=== PATIENT | male | born 1960 | race African-American/Black ===

== ENCOUNTER 2017-05-09 08:57 | Emergency (ER) | payer MEDICAID ==
[~2017-05-09] VITALS: Ht 180.3 cm; Wt 113.0 kg
[2017-05-09 09:19] VITALS: Ht 180.3 cm; Wt 113.0 kg
[2017-05-09] MEDS ORDERED: HYDROCODONE/APAP (5/325) TAB PO ONE (09:30)
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
[2017-05-09] MEDS ORDERED: IBUP800T25 PO (10:05)
[2017-05-09] MEDS ORDERED: HYDR-906 PO (10:05)
[2017-05-09 10:18] VITALS: BP 174/89; PULSE 89; RESP 20
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
== END 2017-05-09 10:18 | disposition home or self-care (01) ==
LOC: E/R 08:57
DX: S70.02XA Contusion of left hip, initial encounter (principal); V09.20XA Pedestrian injured in traffic accident involving unspecified motor vehicles, initial encounter
CPT/HCPCS: 73510; Z7502; Z7610

== ENCOUNTER 2017-08-31 08:58 | Emergency (ER) | END 2017-08-31 17:18 | disposition home or self-care (01) ==

== ENCOUNTER 2018-01-09 11:24 | Inpatient (IN) | END 2018-01-10 14:15 | disposition home or self-care (01) | DRG 313 ==

== ENCOUNTER 2018-05-28 12:46 | Observation (INO) | END 2018-05-29 12:28 | disposition home or self-care (01) ==

== ENCOUNTER 2018-07-30 09:49 | Observation (INO) | payer OTHER ==
[~2018-07-30] VITALS: Ht 180.3 cm; Wt 129.0 kg
[~2018-07-30 09:49] MED LIST: ALBU8.5H8 INH
[2018-07-30 09:59] VITALS: Ht 180.3 cm; Wt 129.0 kg
[2018-07-30] MEDS ORDERED: ASPIRIN 325 MG TAB PO STA (10:36)
[2018-07-30] MEDS ORDERED: ACETAMINOPHEN 325 MG TAB PO PRN ×2 (12:00→14:00)
[2018-07-30] MEDS ORDERED: ONDANSETRON 4 MG INJ IV PRN ×2 (12:00→14:00)
--- NOTE | 2018-07-30 12:11 | ERD ---
ER Documentation Chief Complaint Chief Complaint FEVER, SORE THROAT, COUGH, CWP, STOMACHACHE HPI 58-year-old gentleman, smoking history who presents to the emergency with multiple complaints. His main complaint is chest pressure for approximately 3-5 days. He describes exertional left-sided chest pressure with associated nausea and diaphoresis. He also notes concomitant mild sore throat, dry nonproductive cough. ROS All systems reviewed and are negative except as per history of present illness. Medications Home Meds Active Scripts Albuterol Sulfate* (Proair HFA*) 8.5 Gm Hfa.aer.ad, 2 PUFF INH Q4H PRN for WHEEZING AND SOB for 30 Days, #1 INHALER 6 Refills Prov:REANNA BROOKE MD 05/29/18 Allergies Allergies: Coded Allergies: iodine (Verified Allergy, Intermediate, 01/08/18) PMhx/Soc Anesthesia Reaction: No Hx Neurological Disorder: Yes (left hand tingling) Hx Respiratory Disorders: No Hx Cardiac Disorders: No Hx Psychiatric Problems: No Hx Miscellaneous Medical Probl: No Hx Alcohol Use: Yes (HEAVY USE) Hx Substance Use: No Hx Tobacco Use: Yes Smoking Status: Current every day smoker Physical Exam Vitals Vital Signs Date Temp Pulse Resp B/P (MAP) Pulse Ox O2 O2 Flow FiO2 Time Delivery Rate 07/30/18 63 17 152/65 96 Room Air 11:57 (94) 07/30/18 77 20 128/99 96 Room Air 11:01 (109) 07/30/18 98.4 94 20 124/64 96 09:59 (84) Physical Exam General: Well developed, well nourished, no acute distress Head: Normocephalic, atraumatic. Eyes: Pupils equally reactive, EOM intact ENT: Moist mucous membranes, posterior pharynx without swelling or exudates Neck: Supple, no lymphadenopathy Respiratory: Lungs clear bilaterally, no distress Cardiovascular: RRR, no murmurs, rubs, or gallops Abdominal: Soft, non-tender, non-distended, no peritoneal signs : Deferred MSK: No edema, no unilateral swelling, 5/5 strength Neurologic: Alert and oriented, moving all extremities, normal speech, no focal weakness, no cerebellar signs Skin: No rash Psych: Normal mood Result Diagram: 07/30/18 1049 07/30/18 1049 Results 24 hrs Laboratory Tests Test 07/30/18 10:49 White Blood Count 5.6 10^3/ul Red Blood Count 4.44 10^6/ul Hemoglobin 14.7 g/dl Hematocrit 43.2 % Mean Corpuscular Volume 97.3 fl Mean Corpuscular Hemoglobin 33.1 pg Mean Corpuscular Hemoglobin Concent 34.0 g/dl Red Cell Distribution Width 13.2 % Platelet Count 243 10^3/UL Mean Platelet Volume 8.9 fl Immature Granulocytes % 0.400 % Neutrophils % 61.1 % Lymphocytes % 23.0 % Monocytes % 7.6 % Eosinophils % 7.0 % Basophils % 0.9 % Nucleated Red Blood Cells % 0.0 /100WBC Immature Granulocytes # 0.020 10^3/ul Neutrophils # 3.4 10^3/ul Lymphocytes # 1.3 10^3/ul Monocytes # 0.4 10^3/ul Eosinophils # 0.4 10^3/ul Basophils # 0.1 10^3/ul Nucleated Red Blood Cells # 0.0 10^3/ul Sodium Level 142 mmol/L Potassium Level 4.3 mmol/L Chloride Level 106 mmol/L Carbon Dioxide Level 26 mmol/L Anion Gap 10 Blood Urea Nitrogen 17 mg/dl Creatinine 1.19 mg/dl Est Glomerular Filtrat Rate mL/min > 60 mL/min Glucose Level 120 mg/dl Calcium Level 9.0 mg/dl Troponin I < 0.012 ng/ml B-Type Natriuretic Peptide < 11 PG/ML Current Medications Medications Dose Sig/Inga Start Time Status Last (Trade) Ordered Route PRN Stop Time Admin Dose Reason Admin Aspirin 325 mg ONCE STAT 07/30/18 DC 07/30/18 (Aspirin) PO 10:36 11:05 07/30/18 10:38 Ondansetron 4 mg ER BRIDGE 07/30/18 HCl (Zofran PRN IV 12:00 Inj) NAUSEA AND/OR 07/31/18 11:59 VOMITING 650 mg ER BRIDGE 07/30/18 Acetaminophen PRN PO MILD 12:00 (Tylenol PAIN(1-3)OR 07/31/18 11:59 Tab) ELEVATED TEMP Procedures/MDM EKG, MONITORS, & DIAGNOSTIC IMAGING: EKG: I reviewed and interpreted a 12-lead EKG. Rhythm: Normal sinus rhythm ST Changes: No contiguous ST segment elevations T waves: No contiguous T wave inversions Impression: [No evidence of acute cardiac ischemia] Repeat EKG: EKG: I reviewed and interpreted a 12-lead EKG. Rhythm: Normal sinus rhythm ST Changes: No contiguous ST segment elevations T waves: No contiguous T wave inversions Impression: [No evidence of acute cardiac ischemia] Chest x-ray: I reviewed and interpreted a 1 view of the chest Mediastinum: No enlargement Cardiac silhouette: No cardiomegaly Airspace: Clear lung shaver bilaterally without evidence of pneumothorax Bones: No evidence of fracture PROCEDURES: [None] LAB INTERPRETATION: * Negative troponin MEDICAL DECISION MAKING: The patient's history, physical exam and clinical presentation is concerning for possible cardiogenic etiology and acute coronary syndrome. Based on the patient's clinical exam and history and risk factors, I have a much lower clinical concern for pulmonary embolism, acute aortic dissection, pneumothorax, pneumonia, cardiac tamponade HEART Score: 4 MACE Rate: 16.6% Shared Decision Making: We had a conversation regarding risk stratification, MACE rate, and the risks, benefits, alternatives of disposition planning options. Disposition planning: Admit for rule out ER COURSE: * Troponin negative, aspirin provided CONSULTATION: [None] DISPOSITION PLAN: Telemetry admission for management of chest pain to rule out acute coronary sy ndrome, serial enzymes, risk stratification and consideration of provocative testing CONSULTATION: Accepting care team and consultations: I discussed the current laboratory data, diagnostic imaging and emergency care provided. Admitting team: Dr Becerra Admitting team indication: Insurance directed Departure Diagnosis: Primary Impression: Chest pain Chest pain type: unspecified Qualified Codes: R07.9 - Chest pain, unspecified Condition: Stable GROVER TOM MD Jul 30, 2018 12:11
[2018-07-30] MEDS ORDERED: HYDROCODONE/APAP (5/325) TAB PO PRN (14:00)
[2018-07-30] MEDS ORDERED: LORAZEPAM 2 MG INJ IV PRN (14:00)
[2018-07-30] MEDS ORDERED: hydrALAzine 20 MG INJ IV PRN (14:00)
[2018-07-30] MEDS ORDERED: ALBUTEROL/IPRATROPIUM (NEB) 3 ML AMP HHN PRN (14:00)
[2018-07-30] MEDS ORDERED: MAGNESIUM HYDROXIDE 30ML CUP PO PRN (14:00)
[2018-07-30] MEDS ORDERED: NACL 0.9% 3 ML SYG IV SCH (14:00)
[2018-07-30] MEDS ORDERED: DOCUSATE SODIUM 100 MG CAP PO PRN (14:00)
[2018-07-30] MEDS ORDERED: NITROGLYCERIN (SL) 0.4 MG TAB SL PRN (14:00)
[2018-07-30] MEDS ORDERED: morphine 2 MG INJ IV PRN (14:00)
[2018-07-30] MEDS ORDERED: ALBUTEROL HFA 8 GM INHALER INH PRN (14:00)
--- NOTE | 2018-07-30 14:13 | HP ---
Date/Time of Note Date/Time of Note DATE: 07/30/18 TIME: 14:09 Assessment/Plan VTE Prophylaxis SCD applied (from Nsg): No SCD contraindicated: other Pharmacological prophylaxis: heparin Lines/Catheters IV Catheter Type (from Nrs): Saline Lock Assessment/Plan Hospital Course Assessment and plan: 58-year-old male who comes in with chest pain and possible flulike symptoms. #Chest pain: Given patient's smoking history and alcohol use, rule out for acute coronary syndrome. Less likely would be musculoskeletal in origin. -Admit patient to telemetry, check TSH, and A1c, lipid panel -Morphine, oxygen, nitroglycerin, aspirin. Follow-up 2D echocardiogram as well -More importantly, trend troponins every 6 hours x3. First 1 appears to be negative. #Asthma: Continue duo nebs as needed #Smoking history: Counseled on cessation, add nicotine patch #Alcohol use: Does not appear to be intoxicated at this time. - Counseled on cessation. - Monitor for signs of withdrawal check blood ethanol level. Result Diagram: 07/30/18 1049 07/30/18 1049 Results 24hrs Laboratory Tests Test 07/30/18 10:49 White Blood Count 5.6 Red Blood Count 4.44 L Hemoglobin 14.7 Hematocrit 43.2 Mean Corpuscular Volume 97.3 Mean Corpuscular Hemoglobin 33.1 H Mean Corpuscular Hemoglobin Concent 34.0 Red Cell Distribution Width 13.2 Platelet Count 243 Mean Platelet Volume 8.9 Immature Granulocytes % 0.400 Neutrophils % 61.1 Lymphocytes % 23.0 Monocytes % 7.6 Eosinophils % 7.0 Basophils % 0.9 Nucleated Red Blood Cells % 0.0 Immature Granulocytes # 0.020 Neutrophils # 3.4 Lymphocytes # 1.3 Monocytes # 0.4 Eosinophils # 0.4 Basophils # 0.1 Nucleated Red Blood Cells # 0.0 Sodium Level 142 Potassium Level 4.3 Chloride Level 106 Carbon Dioxide Level 26 Anion Gap 10 Blood Urea Nitrogen 17 Creatinine 1.19 Est Glomerular Filtrat Rate mL/min > 60 Glucose Level 120 Calcium Level 9.0 Troponin I < 0.012 B-Type Natriuretic Peptide < 11 HPI/ROS Admit Date/Time Admit Date/Time Hx of Present Illness 58-year-old male past medical history of questionable asthma, heavy alcohol use, smoking history who presents with multiple complaints including chest pain. Patient also complaining of flulike symptoms. Regarding his chest pain this is been going on for 1-2 days. Patient did have some nausea symptoms and sweating. No upper or lower GI bleeding, vomiting, fever chills, diarrhea constipation, or significant shortness of breath. Patient was last here to our hospital from May 28-2017 for similar symptoms. PMH/Family/Social Past Medical History Medications Current Medications Ondansetron HCl (Zofran Inj) 4 mg ER BRIDGE PRN IV NAUSEA AND/OR VOMITING; Start 07/30/18 at 12:00; Stop 07/31/18 at 11:59 Acetaminophen (Tylenol Tab) 650 mg ER BRIDGE PRN PO MILD PAIN(1-3)OR ELEVATED TEMP; Start 07/30/18 at 12:00; Stop 07/31/18 at 11:59 IV Flush (NS 3 ml) 3 ml PER PROTOCOL IV ; Start 07/30/18 at 14:00 Ondansetron HCl (Zofran Inj) 4 mg Q6H PRN IV NAUSEA AND/OR VOMITING; Start 07/30/18 at 14:00 Acetaminophen (Tylenol Tab) 650 mg Q6H PRN PO PAIN LEVEL 1-3 OR FEVER; Start 07/30/18 at 14:00 Acetaminophen/ Hydrocodone Bitart ([place] (5/325)) 1 tab Q6H PRN PO MODERATE PAIN LEVEL 4-6; Start 07/30/18 at 14:00 Morphine Sulfate (morphine) 2 mg Q4H PRN IV SEVERE PAIN LEVEL 7-10; Start at 14:00 Docusate Sodium (Colace) 100 mg Q12H PRN PO CONSTIPATION; Start 07/30/18 at 14:00 Magnesium Hydroxide (Milk Of Mag) 30 ml DAILY PRN PO CONSTIPATION; Start 07/30/18 at 14:00 Pantoprazole (Protonix Tab) 40 mg DAILY@06 PO ; Start 07/31/18 at 06:00 Heparin Sodium (Porcine) (Heparin (5000 Units/1ml)) 5,000 unit Q12 SC ; Start 07/30/18 at 21:00 Sodium Chloride 1,000 ml @ 75 mls/hr [id number] IV ; Start 07/30/18 at 13:39 Lorazepam (Ativan) 0.5 mg Q6H PRN IV ANXIETY; Start 07/30/18 at 14:00 Albuterol/ Ipratropium (Duoneb) 3 ml Q4H RESP THERAPY PRN HHN SHORTNESS OF BREATH; Start 07/30/18 at 14:00 Hydralazine HCl (Apresoline) 10 mg Q6H PRN IV ELEVATED BLOOD PRESSURE; Start 07/30/18 at 14:00 Nitroglycerin (Nitroglycerin (Sl Tab) 0.4 Mg) 1 tab Q5M PRN SL ANGINA; Start 07/30/18 at 14:00 Aspirin (Ecotrin) 325 mg DAILY PO ; Start 07/31/18 at 09:00 Albuterol (Ventolin Hfa) 2 puff Q4H PRN INH WHEEZING AND SOB; Start 07/30/18 at 14:00 Nicotine (Nicoderm 21 Mg/ 24hr) 1 patch DAILY TRANSDERM ; Start 07/30/18 at 14:00 Coded Allergies: iodine (Verified Allergy, Intermediate, 07/30/18) Past Surgical History Past Surgical Hx: no surgical history Family History Significant Family History: no pertinent family hx Social History Alcohol Use: heavy Smoking Status: Current every day smoker Drug Use: none Exam/Review of Systems Vital Signs Vitals Vital Signs Date Temp Pulse Resp B/P (MAP) Pulse Ox O2 O2 Flow FiO2 Time Delivery Rate 07/30/18 71 20 127/80 98 Room Air 13:35 (96) 07/30/18 98.4 09:59 Exam Exam General: Lying in bed, no acute distress Head: Normocephalic, atraumatic. Eyes: Pupils equally reactive, EOM intact ENT: Moist mucous membranes, posterior pharynx without swelling or exudates Neck: Supple Respiratory: Lungs clear bilaterally, no distress Cardiovascular: RRR, no murmurs, rubs, or gallops Abdominal: Soft, non-tender, non-distended, no peritoneal signs MSK: No edema, no unilateral swelling, 5/5 strength Neurologic: No focal deficits CESARIO WINTER Jul 30, 2018 14:13
[2018-07-30 15:11] VITALS: BP 135/77; PULSE 66; RESP 20
[2018-07-30] MEDS: SOD CHLORIDE 0.45% 1,000 ML IV SCH (16:01)
[2018-07-30] MEDS: NICOTINE (21 MG/24 HR) PATCH TRANSDERM SCH ×2 (16:01→16:03)
[2018-07-30 16:37] VITALS: PULSE 74
[2018-07-30] MEDS ORDERED: GUAIFENESIN 20 MG/ML 5ML CUP PO PRN (18:00)
[2018-07-30 20:00] VITALS: PULSE 80
[2018-07-30 20:24] VITALS: BP 136/68; PULSE 80; RESP 16
[2018-07-30] MEDS: HEPARIN 5,000 UNIT/1 ML VIAL SC SCH (20:28)
[2018-07-31] VITALS (7 sets, daily range): BP systolic 121–146; BP diastolic 63–82; PULSE 35–87; RESP 16–20
[2018-07-31] MEDS: SOD CHLORIDE 0.45% 1,000 ML IV SCH ×2 (02:59→06:41)
[2018-07-31] MEDS ORDERED: PANTOPRAZOLE (EC) 40 MG TAB PO SCH (06:00)
[2018-07-31] MEDS: HEPARIN 5,000 UNIT/1 ML VIAL SC SCH (08:37)
--- NOTE | 2018-07-31 08:55 | RADRPT ---
Echocardiogram Report Patient Name: FRED EMMANUEL Gender: Male Date: 1960 Study Date: 30-Jul-2018 Work Force Advisor: TB Location: [id number] Ref. Physician: CESARIO WINTER Quality: Adequate Procedures: Transthoracic echocardiogram with complete 2D, M-Mode, and doppler examination. Indications: Chest Pain. 2D/M Mode Doppler Measurement Value Normal Ranges Measurement Value Normal Ranges LVIDd 2D 5.3 3.5 - 5.6 cm AV Mean Dylon 1.0 m/sec LVIDs 2D 4.0 2.1 - 4.1 cm AV Mean PG 4.0 mmHg LVPWd 2D 1.1 0.6 - 1.1 cm AV Peak Dylon 1.4 m/sec IVSd 2D 1.3 0.6 - 1.1 cm AV Peak PG 8.0 mmHg AoR Diam 2D 3.0 2.0 - 3.7 cm AV VTI 28.2 cm LA/Ao 2D 1 0 - 1 LVOT Mean Dylon 0.8 m/sec EF 2D 47.0 50.0 - 65.0 % LVOT Mean PG 3.0 mmHg LA Dimen 2D 2.7 2.3 - 4.0 cm LVOT Peak Dylon 1.2 m/sec IVC Diam 1.8 1.2 - 2.0 LVOT Peak PG 6.0 mmHg MV E Peak Dylon 0.8 m/sec MV A Peak Dylon 0.6 m/sec MV E/A 1.4 MV PHT 52.0 msec MV Decel Time 176 msec MV Decel Storey 5 MV E/A 1.4 MV PHT 52.0 msec MVA PHT 4.2 cm2 TAPSE 1.8 cm TR Peak Dylon 1.6 m/sec TR Peak PG 11.0 mmHg RVSP 19.0 mmHg RA Pressure 8.0 Findings Left Ventricle: Normal left ventricular systolic function. Normal left ventricular cavity size. Normal left ventricular wall thickness. Ejection fraction is visually estimated at 55 %. Right Ventricle: Normal right ventricular systolic function. Moderate enlargement of right ventricle. Left Atrium: The left atrium is normal in size. Right Atrium: The right atrium is normal in size. RA Pressure=8. Mitral Valve: Normal appearance and function of the mitral valve with trace physiologic regurgitation. Aortic Valve: Normal appearance of the aortic valve. No significant aortic stenosis or insufficiency. Tricuspid Valve: Normal appearance and function of the tricuspid valve with trace physiologic regurgitation. Normal right ventricular systolic pressure. Estimated peak PA systolic pressure 19 mmHg. Pulmonic Valve: Pulmonic valve not well visualized. Pericardium: Normal pericardium with no significant pericardial effusion. Aorta: Not well visualized. IVC: Normal size and no respiratory collapse consistent with elevated right atrial pressure. Conclusions Technically difficult study due to poor parasternal and subcostal windows. Low normal left ventricular systolic function. Dilated right ventricle with normal systolic function. Trace tricuspid regurgitation and normal measured pulmonary pressures. Electronically Signed By: Carla Morales 31-Jul-2018 08:54:43 -0800 Patient Name: FRED EMMANUEL Study Date: 30-Jul-2018 [id number]
[2018-07-31] MEDS ORDERED: ASPIRIN (EC) 325 MG TAB PO SCH (09:00)
--- NOTE | 2018-07-31 10:11 | PDOCDIS ---
Discharge Instructions CONDITION [id number] Patient Condition: [id number] Stable HOME CARE INSTRUCTIONS: [id number] Diet Instructions: [id number] Low Fat /Cholesterol ACTIVITY: [id number] Activity Restrictions: [id number] Slowly Increase Activity Rest between Activity Avoid heavy lifting FOLLOW UP/APPOINTMENTS Follow-up Plan Please take your medications as prescribed. Please see your doctor in the clinic in the next 1-2 weeks. CESARIO WINTER Jul 31, 2018 10:11
--- NOTE | 2018-07-31 10:15 | DS ---
Date/Time of Note Date/Time of Note DATE: 07/31/18 TIME: 10:12 Discharge Summary Admission/Discharge Info Admit Date/Time Jul 30, 2018 at 11:51 Discharge Date/Time Discharge Diagnosis #Chest pain: ruled out for acute coronary syndrome #Asthma: Continue duo nebs as needed #Smoking history: Counseled on cessation #Alcohol use- Counseled on cessation. Patient Condition: Stable Procedures 2D echo July 30, 2018: Conclusions Technically difficult study due to poor parasternal and subcostal windows. Low normal left ventricular systolic function. Dilated right ventricle with normal systolic function. Trace tricuspid regurgitation and normal measured pulmonary pressures. Hx of Present Illness 58-year-old male past medical history of questionable asthma, heavy alcohol use, smoking history who presents with multiple complaints including chest pain. Patient also complaining of flulike symptoms. Regarding his chest pain this is been going on for 1-2 days. Patient did have some nausea symptoms and sweating. No upper or lower GI bleeding, vomiting, fever chills, diarrhea constipation, or significant shortness of breath. Patient was last here to our hospital from May 28-2017 for similar symptoms. Hospital Course Patient was admitted to telemetry floor. He ruled out for acute coronary syndr ome. His chest pain symptoms resolved. He was able to ambulate, tolerated p.o. diet. His A1c was found to be 6.3. His flu test was ordered and results are still pending by the time of this discharge summary. However no fever, no leukocytosis. Patient was monitored for signs of alcohol withdrawal, he was counseled on cessation for this as well as cessation for smoking. He was placed on nicotine patch. Because the patient is medically improved he will be discharged home today improved condition. See below for full list of discharge medications. Home Meds Active Scripts Albuterol Sulfate* (Proair HFA*) 8.5 Gm Hfa.aer.ad, 2 PUFF INH Q4H PRN for WHEEZING AND SOB for 30 Days, #1 INHALER 6 Refills Prov:REANNA BROOKE MD 05/29/18 Follow-up Plan Please take your medications as prescribed. Please see your doctor in the clinic in the next 1-2 weeks. Primary Care Provider Care Physician No Primary Time spent on discharge: > 30 minutes Pending Labs Laboratory Tests Test 07/30/18 10:49 07/30/18 14:54 07/30/18 19:43 07/31/18 04:12 White Blood 5.6 6.2 Count 10^3/ul (4.8-10 10^3/ul (4.8-1 .8) 0.8) Red Blood 4.44 3.99 Count 10^6/ul (4.70-6 10^6/ul (4.70- .10) 6.10) Hemoglobin 14.7 13.3 g/dl (14.0-18.0 g/dl (14.0-18. ) 0) Hematocrit 43.2 39.7 % (42.0-52.0) % (42.0-52.0) Mean 97.3 99.5 Corpuscular fl (82.0-101.0) fl (82.0-101.0 Volume ) Mean 33.1 33.3 Corpuscular pg (29.0-33.0) pg (29.0-33.0) Hemoglobin Mean 34.0 33.5 Corpuscular g/dl (32.0-37.0 g/dl (32.0-37. Hemoglobin Conc ) 0) ent Red Cell 13.2 13.1 Distribution % (11.5-14.5) % (11.5-14.5) Width Platelet Count 243 233 10^3/UL (140-41 10^3/UL (140-4 5) 15) Mean Platelet 8.9 8.9 Volume fl (7.4-10.4) fl (7.4-10.4) Immature 0.400 0.200 Granulocytes % % (0.001-0.429) % (0.001-0.429 ) Neutrophils % 61.1 52.1 % (39.0-77.0) % (39.0-77.0) Lymphocytes % 23.0 30.0 % (15.0-51.0) % (15.0-51.0) Monocytes % 7.6 7.5 % (0.0-11.0) % (0.0-11.0) Eosinophils % 7.0 % (0.0-7.0) 9.4 % (0.0-7.0) Basophils % 0.9 % (0.0-2.0) 0.8 % (0.0-2.0) Nucleated Red 0.0 0.0 Blood Cells % /100WBC (0.0-0. /100WBC (0.0-0 0) .0) Immature 0.020 0.010 Granulocytes # 10^3/ul (0.0-0. 10^3/ul (0.0-0 031) .031) Neutrophils # 3.4 3.2 10^3/ul (1.6-7. 10^3/ul (1.6-7 5) .5) Lymphocytes # 1.3 1.9 10^3/ul (0.8-2. 10^3/ul (0.8-2 9) .9) Monocytes # 0.4 0.5 10^3/ul (0.3-0. 10^3/ul (0.3-0 9) .9) Eosinophils # 0.4 0.6 10^3/ul (0.0-0. 10^3/ul (0.0-0 5) .5) Basophils # 0.1 0.1 10^3/ul (0.0-0. 10^3/ul (0.0-0 1) .1) Nucleated Red 0.0 0.0 Blood Cells # 10^3/ul (0.0-0. 10^3/ul (0.0-0 0) .0) Sodium Level 142 142 mmol/L (135-144 mmol/L (135-14 ) 4) Potassium 4.3 4.5 Level mmol/L (3.5-5.1 mmol/L (3.5-5. ) 1) Chloride Level 106 107 mmol/L (97-110) mmol/L (97-110 ) Carbon Dioxide 26 27 Level mmol/L (21-31) mmol/L (21-31) Anion Gap 10 (5-13) 8 (5-13) Blood Urea 17 mg/dl (7-20) 23 Nitrogen mg/dl (7-20) Creatinine 1.19 1.19 mg/dl (0.61-1.2 mg/dl (0.61-1. 4) 24) Est Glomerular > 60 > 60 Filtrat mL/min (>60) mL/min (>60) Rate mL/min Glucose Level 120 115 mg/dl (70-220) mg/dl (70-220) Calcium Level 9.0 8.8 mg/dl (8.4-10.2 mg/dl (8.4-10. ) 2) Troponin I < 0.012 < 0.012 < 0.012 < 0.012 ng/ml (0.000-0. ng/ml (0.000-0 ng/ml (0.000-0 ng/ml (0.000-0 120) .120) .120) .120) B-Type < 11 Natriuretic PG/ML (0-125) Peptide Lipase 44 U/L (23-300) Free Thyroxine 0.97 ng/dl (0.64-1.7 9) Ethyl Alcohol < 10.0 Level mg/dl (0-0) Creatine 1339 1238 1073 Kinase IU/L (23-200) IU/L (23-200) IU/L (23-200) Creatine Kinase 0.1 0.1 0.1 Index Creatinine 1.53 1.50 1.37 Kinase MB ng/ml (0.0-2.4 ng/ml (0.0-2.4 ng/ml (0.0-2.4 (Mass) ) ) ) Hemoglobin A1c 6.3 % (0-5.9) Phosphorus 4.5 Level mg/dl (2.5-4.9 ) Magnesium 2.1 Level mg/dl (1.7-2.5 ) Triglycerides 123 Level mg/dl (0-149) Cholesterol 170 Level mg/dl (100-200 ) LDL 114 mg/dl Cholesterol, Calculated HDL 31 Cholesterol mg/dl (28-71) Cholesterol/HDL 5.4 RATIO Ratio Thyroid 0.885 Stimulating MIU/L (0.465-4 Hormone (TSH) .680) CESARIO WINTER Jul 31, 2018 10:14
[2018-07-31] MEDS ORDERED: GUAI-637 PO (10:16)
[2018-07-31] MEDS: NICOTINE (21 MG/24 HR) PATCH TRANSDERM SCH (10:31)
== END 2018-07-31 11:50 | disposition home or self-care (01) ==
LOC: E/R 09:49 → 6WM 11:51
PROVIDERS: ADMIT Hospitalist; ATTEND Hospitalist
DX: R07.9 Chest pain, unspecified (principal); J45.909 Unspecified asthma, uncomplicated; F17.200 Nicotine dependence, unspecified, uncomplicated; Z23 Encounter for immunization
CPT/HCPCS: 36415; 71045; 80048; 80061; 80307; 82550; 82553; 83036; 83690; 83735; 83880; 84100; 84439; 84443; 84484; 85025; 90686; 93005; 93306; 94664; J1644; Z7500; Z7502; Z7610; G0378

== ENCOUNTER 2018-09-14 15:23 | Emergency (ER) | payer OTHER ==
[~2018-09-14] VITALS: Ht 180.3 cm; Wt 130.0 kg
[~2018-09-14 15:23] MED LIST changes: +GUAI-637 PO
[2018-09-14 15:29] VITALS: Ht 180.3 cm; Wt 130.0 kg
[2018-09-14] MEDS ORDERED: ACETAMINOPHEN 500 MG TAB PO STA (19:34)
[2018-09-14] MEDS ORDERED: TETRACAINE 0.5% 4 ML OPH RIGHT EYE ONE (20:00)
[2018-09-14] MEDS ORDERED: FLUORESCEIN STRIP RIGHT EYE ONE (20:00)
[2018-09-14] MEDS ORDERED: AZIT250T13 PO (21:41)
[2018-09-14] MEDS ORDERED: ERYT1OIN6 RIGHT EYE (21:41)
[2018-09-14] MEDS ORDERED: GUAI118L22 PO (21:41)
[2018-09-14] MEDS ORDERED: ALBU18HF INHALATION (21:43)
[2018-09-14] MEDS ORDERED: ACET500C5 PO (21:51)
[2018-09-14] MEDS ORDERED: ALBUTEROL/IPRATROPIUM (NEB) 3 ML AMP HHN STA ×2 (21:57)
[2018-09-14] MEDS ORDERED: ERYTHROMYCIN 1 GM OPH OINT RIGHT EYE ONE (22:00)
[2018-09-14] MEDS ORDERED: AZITHROMYCIN 250 MG TAB PO ONE (22:00)
[2018-09-14] MEDS ORDERED: LIDOCAINE 1% (MPF) 5 ML VIAL INFIL ONE (22:00)
[2018-09-14] MEDS ORDERED: ALBUTEROL HFA 8 GM INHALER INH SCH (22:00)
[2018-09-14] MEDS ORDERED: CEFTRIAXONE 1 GM INJ IM ONE (22:00)
[2018-09-14 23:15] VITALS: BP 122/79; PULSE 70; RESP 20
--- NOTE | 2018-09-15 03:05 | ERD ---
ER Documentation Chief Complaint Chief Complaint Pt reports FB to R eye since yesterday HPI 58 year-old [male] coming in today with Chief Complaint: Right eye pain History of Present Illness: Patient coming in today due to right eye pain since yesterday. Reports cleaning out car, and vacuuming and shaking rugs and debris flew to eyes. Patient noted some mild irritation yesterday, but patient became concerned when he noted blood spot noted on sclera. Patient reports sensation feeling like irritation, no severe pain. Patient presents to ED with low-grade fever, reports he has been having cough and congestion for several weeks dating back to recent visit to [facility] ER in July, ports medications did not help. Review of systems: All systems were reviewed and are negative except for what is indicated in the history of present illness. Past Medical History: [Negative for hypertension, diabetes or other medical problems] Social History: [Patient denies alcohol, elicit drug use]; positive tobacco use Medications: [None] Allergies: [Reviewed as documented in Nursing Notes] Social Concerns: Denies ROS All systems reviewed and are negative except as per history of present illness. Medications Home Meds Active Scripts Acetaminophen* (Tylophen*) 500 Mg Capsule, 2 CAP PO Q6 PRN for MILD PAIN(1-3)OR ELEVATED TEMP, #20 CAP Prov:CHIKA ALVARENGA NP 09/14/18 Albuterol Sulfate* (Ventolin HFA*) 18 Gm Hfa.aer.ad, 2 PUFF INHALATION Q4H for sob/wheezing/cough, #1 INHALER Prov:CHIKA ALVARENGA NP 09/14/18 Azithromycin* (Azithromycin*) 250 Mg Tablet, 250 MG PO DAILY PRN for bronchitis, #4 TAB Prov:CHIKA ALVARENGA NP 09/14/18 Guaifenesin/Codeine Phosphate (CHERATUSSIN AC SYRUP) 118 Ml Liquid, 10 ML PO Q8 PRN for cough/chest congestion, #118 ML Prov:CHIKA ALVARENGA NP 09/14/18 Erythromycin Base (Erythromycin) 1 Gm Oint...g., 1 APPLIC RIGHT EYE QID for corneal abrasion for 7 Days Prov:CHIKA ALVARENGA NP 09/14/18 Guaifenesin (Guaifenesin) 100 Mg/5 Ml Liquid, 200 MG PO Q4H PRN for COUGH, #1 BOTTLE Prov:CESARIO WINTER. 07/31/18 Albuterol Sulfate* (Proair HFA*) 8.5 Gm Hfa.aer.ad, 2 PUFF INH Q4H PRN for WHEEZING AND SOB for 30 Days, #1 INHALER 6 Refills Prov:REANNA BROOKE MD 05/29/18 Allergies Allergies: Coded Allergies: iodine (Verified Allergy, Intermediate, 07/30/18) PMhx/Soc Medical and Surgical Hx: pt denies Medical Hx, pt denies Surgical Hx History of Surgery: No Anesthesia Reaction: No Hx Neurological Disorder: No Hx Respiratory Disorders: No Hx Cardiac Disorders: No Hx Psychiatric Problems: No Hx Miscellaneous Medical Probl: No Hx Alcohol Use: Yes Hx Substance Use: No Hx Tobacco Use: Yes Smoking Status: Current every day smoker FmHx Family History: No diabetes, No coronary disease Physical Exam Vitals Vital Signs Date Temp Pulse Resp B/P (MAP) Pulse Ox O2 O2 Flow FiO2 Time Delivery Rate 09/14/18 98.8 70 20 122/79 97 Room Air 23:15 (93) 09/14/18 76 20 97 21 22:40 09/14/18 100.1 103 20 124/63 100 15:29 (83) Physical Exam Const: No acute distress Head: Atraumatic Eyes: Normal Conjunctiva; subconjunctival hemorrhage noted to right eye medially ENT: Normal External Ears, Nose and Mouth. Neck: Full range of motion. No meningismus. Resp: Expiratory wheezing to auscultation bilaterally, diminished breath sounds and crackles present in all lobes Cardio: Regular rate and rhythm, no murmurs Abd: Soft, non tender, non distended. Normal bowel sounds. obese. Skin: No petechiae or rashes Back: No midline or flank tenderness Ext: No cyanosis, or edema Neur: Awake and alert Psych: Normal Mood and Affect Results 24 hrs Current Medications Medications Dose Sig/Inga Start Time Status Last (Trade) Ordered Route PRN Stop Time Admin Dose Reason Admin Tetracaine 1 drop ONCE ONCE 09/14/18 DC HCl RIGHT EYE 20:00 09/14/18 (Tetracaine 20:01 0.5% Steri-Unit Krys) Fluorescein 1 strip ONCE ONCE 09/14/18 DC Sodium RIGHT EYE 20:00 09/14/18 (Lvikp-G-Anry 20:01 p) 1,000 mg ONCE STAT 09/14/18 DC 09/14/18 Acetaminophen PO 19:34 09/14/18 19:55 (Tylenol 19:38 Tab) 1 applic ONCE ONCE 09/14/18 DC 09/14/18 Erythromycin RIGHT EYE 22:00 09/14/18 21:59 22:01 (Erythromycin Oph Oint) 500 mg ONCE ONCE 09/14/18 DC 09/14/18 Azithromycin PO 22:00 09/14/18 21:57 (Zithromax) 22:01 Albuterol 2 puff Q4H RESP 09/14/18 DC 09/14/18 (Ventolin THERAPY INH 22:00 09/14/18 21:57 Hfa) 23:19 Ceftriaxone 1 gm ONCE ONCE 09/14/18 DC 09/14/18 Sodium IM 22:00 09/14/18 21:59 (Rocephin) 22:01 Lidocaine 2.1 ml ONCE ONCE 09/14/18 DC 09/14/18 (Xylocaine INFIL 22:00 09/14/18 21:57 1% (Mpf)) 22:01 Albuterol/ 3 ml ONCE STAT 09/14/18 DC 09/14/18 Ipratropium HHN 21:57 09/14/18 22:44 (Duoneb) 21:59 Albuterol/ 3 ml ONCE STAT 09/14/18 DC Ipratropium HHN 21:57 09/14/18 (Duoneb) 21:59 Procedures/MDM ED course includes a thorough examination and history. ED course includes imaging; chest x-ray to rule out pneumonia. ED course includes medication; acetaminophen for fever. Eye Exam w/ Arnold Lamp @2118: Visual Acuity: 20/20 bilaterally and each eye Visual Frank: Intact in all four quadrants bilaterally Lac ducts/glands: No swelling Lids w/ evertion: Normal, no foreign body Conj/[place]: subconjunctival hemorrhage noted to right eye, positive Fluorescein uptake, negative Britta's Tonopen readings: 28 Retina exam: No obvious abnormality Otherwise healthy patient presenting with constellation of symptoms likely representing uncomplicated soap conjunctival hemorrhage of right eye, corneal abrasion, bronchitis as characterized by history, physical exam findings [radiologic]. Unremarkable chest x-ray. Patient reassessment at 2153: Wheezing still present, will order 2 DuoNeb's before discharge and Ventolin inhaler. Will give first dose of azithromycin before discharge. Will give 1 dose of ceftriaxone before discharge. Patient reassessment 2320: Patient well-appearing, no acute distress. No respiratory distress. Disposition given. Questions answered. No respiratory distress, otherwise relatively well appearing and nontoxic. Patient educated on diagnoses, prescriptions, follow-up care, return precautions. Strict return precautions given for worsening condition; questions answered discharge. Disposition for discharge with followup in 2-3 days with PCP/clinic for bronchitis and ophthalmology for corneal abrasion. Departure Diagnosis: Primary Impression: Subconjunctival hemorrhage of right eye Additional Impressions: Corneal abrasion, right Bronchitis Condition: Stable Patient Instructions: Bronchitis, Antiobiotic Treatment (Adult), Corneal Abrasion, Subconjunctival Hemorrhage Referrals: [facility] YOU HAVE RECEIVED A MEDICAL SCREENING EXAM AND THE RESULTS INDICATE THAT YOU DO NOT HAVE A CONDITION THAT REQUIRES URGENT TREATMENT IN THE EMERGENCY DEPARTMENT. FURTHER EVALUATION AND TREATMENT OF YOUR CONDITION CAN WAIT UNTIL YOU ARE SEEN IN YOUR DOCTORS OFFICE WITHIN THE NEXT 1-2 DAYS. IT IS YOUR RESPONSIBILITY TO MAKE AN APPOINTMENT FOR [facility]-UP CARE. IF YOU HAVE A PRIMARY DOCTOR --you should call your primary doctor and schedule an appointment IF YOU DO NOT HAVE A PRIMARY DOCTOR YOU CAN CALL OUR PHYSICIAN REFERRAL HOTLINE AT IF YOU CAN NOT AFFORD TO SEE A PHYSICIAN YOU CAN CHOSE FROM THE FOLLOWING [facility] [address] [facility]. [facility] [address] [facility]. [facility] [address] [facility] [facility] [address] [facility] [address] [facility]. [facility]. [address] [facility]. [facility] YOU HAVE RECEIVED A MEDICAL SCREENING EXAM AND THE RESULTS INDICATE THAT YOU DO NOT HAVE A CONDITION THAT REQUIRES URGENT TREATMENT IN THE EMERGENCY DEPARTMENT. FURTHER EVALUATION AND TREATMENT OF YOUR CONDITION CAN WAIT UNTIL YOU ARE SEEN IN YOUR DOCTORS OFFICE WITHIN THE NEXT 1-2 DAYS. IT IS YOUR RESPONSIBILITY TO MAKE AN APPOINTMENT FOR [facility]-UP CARE. IF YOU HAVE A PRIMARY DOCTOR --you should call your primary doctor and schedule and appointment IF YOU DO NOT HAVE A PRIMARY DOCTOR YOU CAN CALL OUR PHYSICIAN REFERRAL HOTLINE AT . IF YOU CAN NOT AFFORD TO SEE A PHYSICIAN YOU CAN CHOSE FROM THE FOLLOWING [facility] INSTITUTIONS: [facility] [address] [place] [address] [facility] [address] [place] [address] [facility] [address] [place] [address] [facility] Hours: Mon - Sun 9:00 AM - 5:00 PM Additional Instructions: Call your primary care doctor TOMORROW for an appointment during the next 2-3 days.See the doctor sooner or return here if your condition worsens before your appointment time. You were unaware that you had fever today when he came in, so it is important to measure temperature at home and take acetaminophen and/or ibuprofen for fever control. We are treating you today for bronchitis. We will give you the injection of ceftriaxone and first dose of azithromycin before discharge, then you will take azithromycin for the next 4 days. You will need to follow-up at the clinic or with your primary care doctor by the end of next week, to ensure that the bronchitis and cough is getting better with the antibiotics and breathing treatments and cough syrup. We are treating you today for corneal abrasion and sub-conjunctival hemorrhage. Use I antibiotics as prescribed for the next 7 days due to risk for infection with corneal abrasion. Your vision is perfect but if you develop any increased eye pain or changes in vision please return to ER. You should follow-up with your eye doctor, accountant tax, by the end of next week for further evaluation and to ensure eye is healing properly. Your ocular pressure reading today was 28. Please give this information to your accountant tax. CHIKA ALVARENGA NP Sep 15, 2018 03:05
== END 2018-09-14 23:15 | disposition home or self-care (01) ==
LOC: FTE 15:23
DX: S05.01XA Injury of conjunctiva and corneal abrasion without foreign body, right eye, initial encounter (principal); H11.31 Conjunctival hemorrhage, right eye; F17.210 Nicotine dependence, cigarettes, uncomplicated; R05 Cough; X58.XXXS Exposure to other specified factors, sequela; Y92.9 Unspecified place or not applicable
CPT/HCPCS: 71046; 94664; 96372; J0696; Z7502; Z7610